=== PATIENT | male | born 1960 ===

== ENCOUNTER 2018-01-06 17:26 | Emergency (ER) | payer MEDICAID ==
[2018-01-06 17:33] VITALS: BP 188/99; PULSE 90; RESP 16; TEMP 98; O2SAT 98
--- NOTE | 2018-01-06 18:17 | C.PDOC ---
History Of Present Illness 57 y/o male with history of DM and HTN presents to ED with c/o anxiety and chest pain since last night. Patient states he was unable to sleep secondary to symptoms. Patient admits to smoking marihuana chronically, stopped in 2012 and continued again, reports he stopped smoking x1 week ago secondary to viral illness. Patient states when he is inside his house, he gets anxious and CP that resolve when he goes outside. Patient has a left AKA sustained by getting leg stuck in machine cementer and folder years ago. Patient denies nausea, vomiting or any other complaints at this time. Time Seen by Provider: 01/06/18 17:47 Chief Complaint (Nursing): Psychiatric Evaluation History Per: Patient History/Exam Limitations: no limitations Onset/Duration Of Symptoms: Days Current Symptoms Are (Timing): Still Present Past Medical History Reviewed: Historical Data, Nursing Documentation, Vital Signs Vital Signs: Last Vital Signs Temp 98 F 01/06/18 17:30 Pulse 90 01/06/18 17:30 Resp 16 01/06/18 17:30 BP 188/99 H 01/06/18 17:30 Pulse Ox 98 01/06/18 18:31 - Medical History PMH: HTN, Hyperlipidemia Surgical History: No Surg Hx Family History: States: No Known Family Hx - Social History Hx Alcohol Use: No Hx Substance Use: Yes - Immunization History Hx Tetanus Toxoid Vaccination: No Hx Influenza Vaccination: No Hx Pneumococcal Vaccination: No Review Of Systems Constitutional: Negative for: Fever, Chills Cardiovascular: Positive for: Chest Pain Respiratory: Negative for: Cough, Shortness of Breath Gastrointestinal: Negative for: Nausea, Vomiting Psych: Positive for: Anxiety. Negative for: Suicidal ideation, Withdrawal Physical Exam - Physical Exam Appears: Non-toxic, No Acute Distress Skin: Warm, Dry, No Rash Head: Atraumatic, Normacephalic Eye(s): bilateral: Normal Inspection Oral Mucosa: Moist Neck: Normal ROM, Supple Cardiovascular: Rhythm Regular Respiratory: Normal Breath Sounds, No Rales, No Rhonchi, No Wheezing Gastrointestinal/Abdominal: Soft, No Tenderness, No Guarding, No Rebound Extremity: Other (left AKA) Neurological/Psych: Oriented x3, Normal Speech ED Course And Treatment ECG: Interpreted By Me, Viewed By Me ECG Rhythm: Sinus Rhythm Rate From EC (bpm ) O2 Sat by Pulse Oximetry: 98 (RA) Pulse Ox Interpretation: Normal Disposition Counseled Patient/Family Regarding: Diagnosis - Disposition Disposition: HOME/ ROUTINE Disposition Time: 18:18 Condition: STABLE Additional Instructions: Take Ativan at night to help you rest. Follow up with Dr. Cuenca on Friday 01/12 at 5pm. Prescriptions: LORazepam [Ativan] 1 mg PO TID PRN #12 tab PRN Reason: Anxiety Instructions: Anxiety, Adult (DC) Forms: [facility] (Macanese), General Discharge Instructions - POA Present On Arrival: None - Clinical Impression Clinical Impression: Anxiety - Scribe Statement The provider has reviewed the documentation as recorded by the Scribshree Liang All medical record entries made by the Nicoleibshree were at my direction and personally dictated by me. I have reviewed the chart and agree that the record accurately reflects my personal performance of the history, physical exam, medical decision making, and the department course for this patient. I have also personally directed, reviewed, and agree with the discharge instructions and disposition.
--- NOTE | 2018-01-09 21:35 | CARD ---
APPROVED REPORT EKG Measurement Heart [id number] <Conclusion> Normal sinus rhythm Normal ECG
== END 2018-01-06 18:33 | disposition home or self-care (01) ==
LOC: C.ER 17:26
DX: F41.9 Anxiety disorder, unspecified (principal); I10 Essential (primary) hypertension; E11.9 Type 2 diabetes mellitus without complications; E78.5 Hyperlipidemia, unspecified